=== PATIENT | female | born 1945 | race Caucasian/White ===

== ENCOUNTER 2024-11-14 03:45 | Emergency (ER) | payer BC, MEDICARE, OTHER ==
[~2024-11-14] VITALS: Ht 152.4 cm; Wt 40.8 kg
[2024-11-14] MEDS ORDERED: LIDOCAINE 1%-EPI 1:100,000 20 ML VIAL ONE (04:23)
[2024-11-14] MEDS: LIDOCAINE 1%-EPI 1:100,000 20 ML VIAL IJ ONE (04:24)
[2024-11-14] MEDS: ACETAMINOPHEN 500 MG TABLET PO ONE (05:38)
[2024-11-14] MEDS: BACITRACIN ZINC OINT 15 GM TUBE TOP STA (05:38)
[2024-11-14 05:40] VITALS: BP 138/78; TEMP 97.9; O2SAT 98
== END 2024-11-14 05:41 | disposition home or self-care (01) ==
LOC: ER 03:48
DX: S01.81XA Laceration without foreign body of other part of head, initial encounter (principal); R51.9 Headache, unspecified; W06.XXXA Fall from bed, initial encounter; Y93.89 Activity, other specified; Y92.89 Other specified places as the place of occurrence of the external cause; Y99.8 Other external cause status
CPT/HCPCS: 12014; 70450; 99284; J3490; A4606; A4663